=== PATIENT | male | born 1930 | race Caucasian/White ===

== ENCOUNTER → 2017-03-15 | Outpatient (CLI) | payer MEDICARE, BC ==
[2017-03-15 10:35] LABS: HEMATOCRIT 40.7 % (37.9-51.0); HEMOGLOBIN 13.7 g/dL (13.5-17.0); HGB HCT DIFFERENCE 0.4; MEAN CORPUSCULAR HEMOGLOBIN 32.9 pg (27.0-33.4); MEAN CORPUSCULAR HGB CONC 33.6 g/dL (32.0-36.0); MEAN CORPUSCULAR VOLUME 98 fl (80-97); RED BLOOD COUNT 4.17 10^6/uL (4.35-5.55); RED CELL DISTRIBUTION WIDTH 13.2 % (11.5-14.0); WHITE BLOOD COUNT 8.9 10^3/uL (4.0-10.5)
[2017-03-15 11:05] LABS: ANION GAP 14 (5-19); BLOOD UREA NITROGEN 52 mg/dL (7-20); CALCIUM 9.4 mg/dL (8.4-10.2); CARBON DIOXIDE 21 mmol/L (22-30); CHLORIDE 106 mmol/L (98-107); CREATININE RESULT 1.59 mg/dL (0.52-1.25); GLUCOSE 133 mg/dL (75-110); POTASSIUM 4.5 mmol/L (3.6-5.0); SODIUM 140.9 mmol/L (137-145)
[2017-03-15 12:06] LABS: APPEARANCE,URINE CLOUDY; BILIRUBIN,URINE NEGATIVE (NEGATIVE); GLUCOSE, URINE NEGATIVE (NEGATIVE); KETONES,URINE TRACE mg/dL (NEGATIVE); LEUKOCYTE ESTERASE,URINE NEGATIVE (NEGATIVE); NITRITE,URINE NEGATIVE (NEGATIVE); PROTEIN,URINE NEGATIVE (NEGATIVE); URIC ACID CRYSTALS,URINE FEW /HPF; URINE SPECIFIC GRAVITY 1.019; UROBILINOGEN,URINE NEGATIVE mg/dL (<2.0)
== END ==
LOC: OD 09:59
PROVIDERS: ATTEND Internal Medicine Nephrology
DX: I12.9 Hypertensive chronic kidney disease with stage 1 through stage 4 chronic kidney disease, or unspecified chronic kidney disease (principal); N18.3 Chronic kidney disease, stage 3 (moderate); E11.9 Type 2 diabetes mellitus without complications
CPT/HCPCS: 36415; 80048; 81001; 85027

== ENCOUNTER 2017-04-20 16:47 | Inpatient (IN) | payer MEDICARE, BC ==
[2017-04-20] MEDS ORDERED: NORMAL SALINE 1000 ML 1,000 ML IV ONE (17:06)
--- NOTE | 2017-04-20 17:22 | ER Document Report ---
ED General - General Mode of Arrival: Ambulatory Information source: Patient TRAVEL OUTSIDE OF THE [place] IN LAST 30 DAYS: No - HPI Similar symptoms previously: Yes Recently seen / treated by doctor: Yes <COSTA LARSEN - Last Filed: 04/20/17 23:36> <SELENA HENSLEY - Last Filed: 04/21/17 00:29> - General Chief Complaint: Nausea/Vomiting/Diarrhea Stated Complaint: VOMITING,WEAKNESS Time Seen by Provider: 04/20/17 17:05 Notes: Patient is an 86 year old male that presents to the emergency department today with complaints of diffuse abdominal pain, vomiting, and diarrhea. Family at bedside states the patient has declined quite a bit over the last month, including a 28 pound weight loss since February. Family states the patient had H. pylori in February, he was still having pain in March so he went back to the PCP and he admitted to them that he had not taken the medication as prescribed so they gave him another regimen of antibiotics which again he did not take as prescribed. Family states that testing came back "negative" for H. pylori recently. Family mentions a "blockage" during a colonoscopy but states they do not believe the patient ever followed up. (COSTA LARSEN) - Related Data Allergies/Adverse Reactions: No Known Allergies Allergy (Unverified 02/03/11 08:26) Past Medical History - General Information source: Patient, Relative, [facility] Records - Social History Smoking Status: Former Smoker Frequency of alcohol use: None Drug Abuse: None Lives with: Alone Family History: Reviewed & Not Pertinent - Past Medical History Cardiac Medical History: Reports: Hx Hypertension Musculoskeltal Medical History: Reports Hx Arthritis - Knees Past Surgical History: Reports: Other - Hx colonoscopy which revealed a "blockage" according to family at beside <COSTA LARSEN - Last Filed: 04/20/17 23:36> Review of Systems - Review of Systems Constitutional: No symptoms reported EENT: No symptoms reported Cardiovascular: See HPI, Syncope, Dizziness Respiratory: No symptoms reported Gastrointestinal: See HPI, Abdominal pain, Diarrhea, Nausea, Vomiting Genitourinary: No symptoms reported Male Genitourinary: No symptoms reported Musculoskeletal: No symptoms reported Skin: No symptoms reported Hematologic/Lymphatic: No symptoms reported Neurological/Psychological: No symptoms reported -: Yes All other systems reviewed and negative <COSTA LARSEN - Last Filed: 04/20/17 23:36> Physical Exam - Vital signs Interpretation: Hypotensive <COSTA LARSEN - Last Filed: 04/20/17 23:36> <SELENA HENSLEY - Last Filed: 04/21/17 00:29> - Vital signs Vitals: Temp Pulse Resp BP Pulse Ox 99.5 F 139 H 18 94/65 L 96 04/20/17 16:51 04/20/17 16:51 04/20/17 16:51 04/20/17 16:51 04/20/17 16:51 - Notes Notes: Physical Exam: General: Alert, appears in mild distress. HEENT: Normocephalic. Atraumatic. PERRL. Extraocular movements intact. Oropharynx clear. Dry mucous membranes. Neck: Supple. Non-tender. Respiratory: No respiratory distress. Clear and equal breath sounds bilaterally. Cardiovascular: Tachycardic, regular rhythm. Abdominal: Cachectic. Non-tender. No distension. Normal Bowel Sounds. Back: Non-tender. No deformity or step off. Extremities: Moves all four extremities. Upper extremities: Normal inspection. Normal ROM. Lower extremities: Normal inspection. No edema. Normal ROM. Neurological: Normal cognition. AAOx4. Normal speech. Psychological: Normal affect. Normal Mood. Skin: Warm. Dry. Normal color. (COSTA LARSEN) Course - Laboratory Result Diagrams: 04/20/17 17:46 04/20/17 21:43 <COSTA LARSEN - Last Filed: 04/20/17 23:36> - Laboratory Result Diagrams: 04/20/17 17:46 04/20/17 21:43 - Diagnostic Test Radiology reviewed: Image reviewed, Reports reviewed <SELENA HENSLEY - Last Filed: 04/21/17 00:29> - Re-evaluation Re-evalutation: 04/20/17 18:13 Went to recheck, pt in CT. 04/20/17 21:04 Dr. Brantley ([facility]) refuses transfer, wants repeat troponin (COSTA LARSEN) 04/21/17 00:27 Patient is an 86-year-old male who comes in with apparent nausea vomiting and diarrhea at home. Patient has not had any further vomiting here. He has not really had any further bowel movements. Patient was initially tachycardic and hypotensive. He is responding well to fluids. Patient has acute on chronic renal insufficiency. Patient also has an elevated troponin which is likely due to demand ischemia. Repeat troponin with no further elevation. Patient had been discussed with the hospitalist to [facility] who do not want to accept the patient for transfer if the patient is not having an increase in troponin. Think that this is due to demand ischemia and not a primary cardiac event. No acute changes on EKG. Patient would have procedures if needed per family. Discussed with family who would prefer to stay at this hospital. I do agree that this does not appear to be a primary cardiac event at this time. No increase in troponin. No acute findings on EKG. Improving with fluids. Stable at time of admission to the hospitalist service. (SELENA HENSLEY) - Vital Signs Vital signs: Temp Pulse Resp BP Pulse Ox 97.4 F 139 H 15 116/71 99 04/20/17 21:59 04/20/17 16:51 04/20/17 22:01 04/20/17 22:00 04/20/17 22:01 - Laboratory Laboratory results interpreted by me: 04/20/17 04/20/17 04/20/17 17:46 17:46 17:46 WBC 17.3 H Seg Neutrophils % 86.0 H Lymphocytes % 8.6 L Absolute Neutrophils 14.9 H VBG pH VBG pCO2 Sodium 146.5 H Chloride Carbon Dioxide 21 L BUN 84 H Creatinine 2.93 H Est GFR ( Amer) 25 L Est GFR (Non-Af Amer) 20 L Glucose 239 H Lactic Acid 2.3 H Direct Bilirubin 0.6 H Urine Protein Urine Ketones Urine Blood 04/20/17 04/20/17 04/20/17 17:46 18:06 21:43 WBC Seg Neutrophils % Lymphocytes % Absolute Neutrophils VBG pH 7.43 H VBG pCO2 33.3 L Sodium 148.4 H Chloride 112 H Carbon Dioxide BUN 80 H Creatinine 2.34 H Est GFR ( Amer) 32 L Est GFR (Non-Af Amer) 26 L Glucose 165 H Lactic Acid Direct Bilirubin Urine Protein 30 H Urine Ketones TRACE H Urine Blood MODERATE H Critical Care Note - Critical Care Note Total time excluding time spent on procedures (mins): 75 - Evaluation and management of tachycardia, hypotension, dehydration, acute renal insufficiency, coordination with tertiary care center, coordination of admission, multiple re- evaluations, counseling of patient and family <SELENA HENSLEY - Last Filed: 04/21/17 00:29> Discharge <COSTA LARSEN - Last Filed: 04/20/17 23:36> - Discharge Admitting Provider: [facility] Admitted: [facility] <SELENA HENSLEY - Last Filed: 04/21/17 00:29> - Discharge Clinical Impression: Acute on chronic renal insufficiency, Dehydration, Elevated troponin level Vomiting Qualifiers: Vomiting type: unspecified Vomiting Intractability: non-intractable Nausea presence: with nausea Qualified Code(s): R11.2 - Nausea with vomiting, unspecified Diarrhea Qualifiers: Diarrhea type: unspecified type Qualified Code(s): R19.7 - Diarrhea, unspecified Disposition: ADMITTED INPATIENT Scribe Attestation: 04/21/17 00:28 I personally performed the services described in the documentation, reviewed and edited the documentation which was dictated to the scribe in my presence, and it accurately records my words and actions. (SELENA HENSLEY) Scribe Documentation - Scribe Written by Jhon:: Jhon Blair, 04/20/2017 1758 acting as scribe for :: Zoey <COSTA LARSEN - Last Filed: 04/20/17 23:36>
[2017-04-20 18:00] LABS: VENOUS BLOOD BASE EXCESS -1.8 mmol/L; VENOUS BLOOD HCO3 21.6 mmol/L (20-32); VENOUS BLOOD PCO2 33.3 mmHg (35-63); VENOUS BLOOD PH 7.43 (7.30-7.42)
[2017-04-20 18:01] LABS: ABSOLUTE LYMPHOCYTES (AUTO) 1.5 10^3/uL (0.5-4.7); ABSOLUTE MONOCYTES (AUTO) 0.9 10^3/uL (0.1-1.4); ABSOLUTE NEUT (AUTO) 14.9 10^3/uL (1.7-8.2); BASOPHILS % (AUTO) 0.1 % (0-2); EOSINOPHILS % (AUTO) 0.1 % (0-6); HEMATOCRIT 49.7 % (37.9-51.0); HEMOGLOBIN 16.3 g/dL (13.5-17.0); HGB HCT DIFFERENCE -0.8; LYMPHOCYTES % (AUTO) 8.6 % (13-45); MEAN CORPUSCULAR HEMOGLOBIN 31.9 pg (27.0-33.4); MEAN CORPUSCULAR HGB CONC 32.9 g/dL (32.0-36.0); MEAN CORPUSCULAR VOLUME 97 fl (80-97); MONOCYTES % (AUTO) 5.2 % (3-13); RED BLOOD COUNT 5.13 10^6/uL (4.35-5.55); RED CELL DISTRIBUTION WIDTH 13.5 % (11.5-14.0); WHITE BLOOD COUNT 17.3 10^3/uL (4.0-10.5)
[2017-04-20 18:06] LABS: PROTHROMBIN TIME 13.6 SEC (11.4-15.4)
[2017-04-20 18:20] LABS: ALANINE AMINOTRANSFERASE 43 U/L (21-72); ALBUMIN 3.9 g/dL (3.5-5.0); ALKALINE PHOSPHATASE 76 U/L (38-126); ANION GAP 19 (5-19); ASPARTATE AMINO TRANSFERASE 29 U/L (17-59); BILIRUBIN,DIRECT 0.6 mg/dL (0.0-0.4); BILIRUBIN,TOTAL 1.2 mg/dL (0.2-1.3); BLOOD UREA NITROGEN 84 mg/dL (7-20); CALCIUM 9.6 mg/dL (8.4-10.2); CARBON DIOXIDE 21 mmol/L (22-30); CHLORIDE 107 mmol/L (98-107); CREATINE KINASE 76 U/L (55-170); CREATININE RESULT 2.93 mg/dL (0.52-1.25); GLUCOSE 239 mg/dL (75-110); POTASSIUM 4.4 mmol/L (3.6-5.0); SODIUM 146.5 mmol/L (137-145); TOTAL PROTEIN 6.8 g/dL (6.3-8.2)
[2017-04-20 18:32] LABS: CREATINE KINASE MB 4.12 ng/mL (<4.55)
[2017-04-20 18:34] LABS: TROPONIN I 0.24 ng/mL
--- NOTE | 2017-04-20 18:40 | RADIOLOGY REPORT (SQ) ---
EXAM DESCRIPTION: CT HEAD WITHOUT COMPLETED DATE/TIME: 04/20/2017 6:27 pm REASON FOR STUDY: fall, head injury COMPARISON: None. TECHNIQUE: Axial images acquired through the brain without intravenous contrast. Images reviewed wi th bone, brain and subdural windows. Images stored on PACS. All CT scanners at this facility use dose modulation, iterative reconstruction, and/or weight based d osing when appropriate to reduce radiation dose to as low as reasonably achievable (ALARA). [facility]: Dose Right [facility]: CareDose [facility]: Dose Right [facility]: Teradose 4D [facility]: Smart [employer] RADIATION DOSE: Up-to-date CT equipment and radiation dose reduction techniques were employed. CTDIv ol: 64.6 mGy. DLP: 1680 mGy-cm. mGy. LIMITATIONS: None. FINDINGS: VENTRICLES: Prominent. CEREBRUM: No masses. No hemorrhage. No midline shift. Areas of low density in the white matter mos t likely due to chronic micro-vascular ischemic change. No evidence for acute infarction. CEREBELLUM: No masses. No hemorrhage. No alteration of density. No evidence for acute infarction. EXTRAAXIAL SPACES: Mild age-related involutional change. No fluid collections. No masses. ORBITS AND GLOBE: No intra- or extraconal masses. Normal contour of globe without masses. CALVARIUM: No fracture. PARANASAL SINUSES: No fluid or mucosal thickening. SOFT TISSUES: No mass or hematoma. OTHER: No other significant finding. IMPRESSION: MILD CHRONIC CHANGES OF ATROPHY AND MICROVASCULAR ISCHEMIA. NO ACUTE PROCESS. TECHNICAL DOCUMENTATION: JOB ID: [id number] Quality ID # [id number]: Final reports with documentation of one or more dose reduction techniques (e.g., Au tomated exposure control, adjustment of the mA and/or kV according to patient size, use of iterative reconstruction technique) 2010 [employer]- All Rights Reserved
[2017-04-20 18:41] LABS: APPEARANCE,URINE SLIGHTLY-CLOUDY; BILIRUBIN,URINE NEGATIVE (NEGATIVE); GLUCOSE, URINE NEGATIVE (NEGATIVE); KETONES,URINE TRACE mg/dL (NEGATIVE); LEUKOCYTE ESTERASE,URINE NEGATIVE (NEGATIVE); NITRITE,URINE NEGATIVE (NEGATIVE); PROTEIN,URINE 30 mg/dL (NEGATIVE); URINE SPECIFIC GRAVITY 1.019; UROBILINOGEN,URINE NEGATIVE mg/dL (<2.0)
--- NOTE | 2017-04-20 18:44 | RADIOLOGY REPORT (SQ) ---
EXAM DESCRIPTION: CHEST PA/LAT COMPLETED DATE/TIME: 04/20/2017 6:37 pm REASON FOR STUDY: AMS COMPARISON: None. EXAM PARAMETERS: NUMBER OF VIEWS: two views TECHNIQUE: Digital Frontal and Lateral radiographic views of the chest acquired. RADIATION DOSE: NA LIMITATIONS: none FINDINGS: LUNGS AND PLEURA: The lungs are hyperexpanded. There are no pulmonary infiltrates or pleu ral effusions. There is no mass. MEDIASTINUM AND HILAR STRUCTURES: No masses or contour abnormalities. HEART AND VASCULAR STRUCTURES: Heart normal size. No evidence for failure. BONES: No acute findings. HARDWARE: None in the chest. OTHER: No other significant finding. IMPRESSION: Chronic lung changes with no acute cardiopulmonary disease. TECHNICAL DOCUMENTATION: JOB ID: [id number] [employer]- All Rights Reserved
--- NOTE | 2017-04-20 18:58 | RADIOLOGY REPORT (SQ) ---
EXAM DESCRIPTION: CT ABD/PELVIS NO ORAL OR IV COMPLETED DATE/TIME: 04/20/2017 6:27 pm REASON FOR STUDY: pain, N/V/D COMPARISON: CT of the abdomen 09/04/2009 TECHNIQUE: CT scan of the abdomen and pelvis performed without intravenous or oral contrast. Images reviewed with lung, soft tissue, and bone windows. Reconstructed coronal and sagittal MPR images revi ewed. All images stored on PACS. All CT scanners at this facility use dose modulation, iterative reconstruction, and/or weight based d osing when appropriate to reduce radiation dose to as low as reasonably achievable (ALARA). [facility]: Dose Right [facility]: CareDose [facility]: Dose Right [facility]: Teradose 4D [facility]: Smart [employer] RADIATION DOSE: Up-to-date CT equipment and radiation dose reduction techniques were employed. CTDIv ol: 4.8 mGy. DLP: 250 mGy-cm.mGy. LIMITATIONS: None. FINDINGS: LOWER CHEST: No significant findings. No nodules or infiltrates. NON-CONTRASTED LIVER, SPLEEN, ADRENALS: Evaluation limited by lack of IV contrast. No identified sign ificant masses. PANCREAS: No masses. No peripancreatic inflammatory changes. GALLBLADDER: Contracted. Not well evaluated. RIGHT KIDNEY AND URETER: Small nonobstructing intrarenal calculi. No hydronephrosis or hydroureter. LEFT KIDNEY AND URETER: No suspicious masses. Assessment limited by lack of IV contrast. No signifi cant calcifications. No hydronephrosis or hydroureter. AORTA AND RETROPERITONEUM: No aneurysm or dissection. Dense atherosclerotic calcifications are prese nt. BOWEL AND PERITONEAL CAVITY: There is a gas-filled loop of sigmoid colon, but there is no evidence of obstruction. There is some gas in the rectum. There are occasional sigmoid diverticula with no acu te inflammation. APPENDIX: Normal. PELVIS, BLADDER, AND ABDOMINAL WALL:Calcifications seen in the dependent portion of the bladder on th e right. The prostate gland is prominent. BONES: No acute abnormality. OTHER: No other significant finding. IMPRESSION: 1. Atherosclerosis. 2. There is no evidence of bowel obstruction. 3. Enlarged prostate gland. 4. Occasional sigmoid diverticula are present with no acute inflammatory changes. TECHNICAL DOCUMENTATION: JOB ID: [id number] Quality ID # [id number]: Final reports with documentation of one or more dose reduction techniques (e.g., Au tomated exposure control, adjustment of the mA and/or kV according to patient size, use of iterative reconstruction technique) 2010 [employer]- All Rights Reserved
[2017-04-20] MEDS ORDERED: RINGERS SOLUTION,LACTATED 500 ML IV ONE (19:09)
[2017-04-20] MEDS ORDERED: RINGERS SOLUTION,LACTATED 1,000 ML IV ONE (19:10)
--- NOTE | 2017-04-20 19:15 | EKG REPORT ---
SEVERITY:- ABNORMAL ECG - ECTOPIC ATRIAL TACHYCARDIA ATRIAL PREMATURE COMPLEX INCOMPLETE RBBB AND LAFB : Confirmed by: Mejia Fofana MD 20-Apr-2017 19:13:37
[2017-04-20 22:25] LABS: BLOOD UREA NITROGEN 80 mg/dL (7-20); CALCIUM 8.9 mg/dL (8.4-10.2); CREATININE RESULT 2.34 mg/dL (0.52-1.25); GLUCOSE 165 mg/dL (75-110)
[2017-04-20 22:26] LABS: ANION GAP 13 (5-19); CARBON DIOXIDE 23 mmol/L (22-30); CHLORIDE 112 mmol/L (98-107); POTASSIUM 4.3 mmol/L (3.6-5.0); SODIUM 148.4 mmol/L (137-145)
[2017-04-20] MEDS ORDERED: DEXTROSE 40% GEL 15 GM TUBE PO PRN ×2 (23:14)
[2017-04-20] MEDS ORDERED: GLUCAGON,HUMAN RECOMB 1 MG INJ IM PRN (23:14)
[2017-04-20] MEDS ORDERED: DEXTROSE 50%-WATER 25 GM/50 ML DISP.SYRIN IV PRN ×2 (23:14)
[2017-04-20] MEDS ORDERED: INSULIN LISPRO 100 UNIT/ML 3 ML VIAL SUBCUT PRN (23:14)
[2017-04-20] MEDS ORDERED: 1/2 NORMAL SALINE 1,000 ML IV PRN (23:15)
[2017-04-20 23:52] LABS: ADD ON TESTING BLD IN LAB ACKNOWLEDGE
[2017-04-21 00:18] LABS: MAGNESIUM 2.3 mg/dL (1.6-2.3)
[2017-04-21] MEDS ORDERED: ACETAMINOPHEN 325 MG TABLET PO ONE (01:07)
[2017-04-21] MEDS ORDERED: PROMETHAZINE HCL 25 MG TABLET PO PRN (02:49)
[2017-04-21] MEDS ORDERED: ACETAMINOPHEN 325 MG TABLET PO PRN (02:49)
--- NOTE | 2017-04-21 03:26 | PDOC H&P ---
History of Present Illness Admission Date/PCP: 04/21/17 00:35 [facility] urgent care [facility] Nephrology Dr. Heraclio Cortes Patient complains of: Vomiting and weakness History of Present Illness: JULISA TIAN is a 86 year old male with underlying mild depression , without suicidal or homicidal ideation, stage III chronic kidney disease, followed by Dr. 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 Patient has been discussed with emergency room physician who evaluated the patient. Patient himself is not the best historian, but son and [id number] , who are present at his side, are helpful with additional information. No prior inpatient records available for review. Initial mild hypotension in the emergency room, which responded nicely to IV fluids. As best I can determine, over the last 2 weeks or so he has had intermittent nausea vomiting and diarrhea. No fever or chills. Occasional headache, but no chest pain. Mild abdominal discomfort. No further vomiting or diarrhea since coming to the emergency room. Generalized weakness over the past month, with family stating that he has "declined quite a bit" over that time span. Normally ambulates with a cane; now requiring a walker. Unintentional 28 pound weight loss since February. Dizziness along with the generalized weakness. Has fallen twice in the past 2 weeks. Last episode was of last week. Diagnosed with H. pylori infection in February of this year. Prescribed medication for same but was later discovered that he had not taken the medication as prescribed. Was given a second regimen of antibiotics, but likewise did not take those as prescribed. However, subsequent test for H. pylori was reported as negative. Currently resting quietly, with only a mild headache, which is an occasional problem for him. Laboratory results are listed in [employer] and are reviewed. X-ray summary results are listed below, with full report(s) reviewed. . EKG reviewed. No prior EKG available for comparison. Social history/personal habits: ; of 69 years is currently in a rest home. Retired. No use of alcohol tobacco or illicit drugs. No known drug allergies. Home medications initially autopopulated into [employer] may not accurately reflect patient's true medications, dosages, and/or frequencies. tech intern to reconcile medications. Unfortunately, patient not able to provide information related to medications/ dosages/frequencies. REVIEW OF SYSTEMS: Constitutional: No fever or chills. Eyes: Wears glasses. ENT: Denies hearing loss. Admits to occasional dysphagia recently; denies food "getting stuck." Occasional mild aspiration also. States he sometimes has to swallow solid food with a drink of water. Pulmonary: No current complaints. Cardiovascular: No current complaints, including chest pain. Gastrointestinal: See history and present illness. Skin: No current complaints, including rashes. Hematologic: Easy bruising. Neurologic: No current complaints, including numbness or tingling. Musculoskeletal: Chronic joint pain from arthritis, in particular involving his knees. Psychiatric: Mild depression. Denies suicidal or homicidal ideation. Endocrine: No current complaints, including polyuria. Genitourinary: No current complaints, including dysuria. PHYSICAL EXAMINATION: 5 feet 9 inches tall. 50.4 kg. BMI 16.4 kg/m. Blood pressure 126/73. Pulse 92 and regular. 99% saturation on room air. Respirations are 16 and unlabored. Temperature 97.4. Quite thin otherwise well-developed male appearing approximately his stated age. Pleasant awake alert and cooperative. Mildly anxious, without agitation. Appears a bit fatigued. Son and [id number] are present at his side; patient approves. Skin is warm and dry. No grossly obvious evidence of rash in areas of skin examined. No subcutaneous nodules palpated. Dry peeling skin on his lips. ENT: Hearing grossly normal to normal conversation. Tongue midline on protrusion pink and tacky. Eyes: No scleral icterus. Pupils equal and reactive to light at 4 mm. [place] conjunctivae. Neck is supple and nontender to gentle active range of motion and palpation. Midline trachea. No palpable thyroid nodule mass enlargement or tenderness. Lymphatic: No palpable cervical or clavicular nodes. Psychiatric: Fair to reasonable insight into acute and chronic medical issues. Oriented to time location and why here. Lungs: Auscultation reveals clear and equal breath sounds bilaterally. No use of accessory respiratory muscles. Cardiovascular: Heart regular rate and rhythm, without gallop murmur or rub. No carotid or abdominal aortic bruits. No ankle or pedal edema. Faintly palpable dorsalis pedis pulses. Abdomen:soft nontender with positive bowel sounds. No upper abdominal mass or organomegaly palpated. Extremities: Feet are warm and dry. No calf tenderness to compression. No grossly obvious visual evidence of calf swelling. Gentle manipulation of lower extremities fails to reveal any obvious evidence of injury or instability to knees hips or ankles. Neurologic: Moves upper extremities grossly normally. Patellar reflexes absent. Absent Babinski. Light touch is intact at feet. Dorsiflexion and plantarflexion of feet 5 / 5 and symmetric. Past Medical History Cardiac Medical History: Reports: Hypertension Denies: Congestive Heart Failure, Coronary Artery Disease, DVT, Myocardial Infarction, Hyperlipidema, Pulmonary Embolism Pulmonary Medical History: Denies: Asthma, Bronchitis, Chronic Obstructive Pulmonary Disease (COPD), Pneumonia EENT Medical History: Reports: Eyes - Wears glasses, Throat - Mild recent dysphasia with occasional slight aspiration. Denies: Ears Neurological Medical History: Denies: Hemorrhagic CVA, Ischemic CVA, Seizures Endocrine Medical History: Reports: Diabetes Mellitus Type 2 Denies: Diabetes Mellitus Type 1, Hyperthyroidism, Hypothyroidism Renal/ Medical History: Reports: Chronic Kidney Disease Malignancy Medical History: Reports: Skin Cancer GI Medical History: Reports: Other - Recent partial treatment of H. pylori infection. History of "stomach upsets." Denies: Cirrhosis, Hepatitis, Peptic Ulcer Disease Musculoskeltal Medical History: Reports: Arthritis - Knees Skin Medical History: Reports: Other - Skin cancer Psychiatric Medical History: Reports: Depression - Denies suicidal or homicidal ideation. Denies: Alcohol Dependency, General Anxiety Disorder, Substance Abuse, Tobacco Dependency Hematology: Reports: Other - Easy bruising Denies: Anemia Infectious Medical History: Denies: Clostridium Difficile, Hepatitis B, Hepatitis C, Methicillin- Resistant Staph Aureus Past Surgical History Past Surgical History: Reports: Cholecystectomy, Herniorrhaphy, Other - Hx colonoscopy which revealed a "blockage" according to family at beside Denies: Pacemaker Social History Information Source: Patient, Relative - Son and [id number]-[id number], Emergency Med Personnel, [facility] Records Lives with: Alone Smoking Status: Unknown if Ever Smoked Frequency of Alcohol Use: None Drugs: None - Advance Directive Resuscitation Status: Do Not Resuscitate Surrogate healthcare decision maker:: Son Family History Family History: Reviewed & Not Pertinent Parental Family History Reviewed: Yes - Father of hypertension; mother of diabetes mellitus. Children Family History Reviewed: Yes - Son with coronary artery disease. Sibling(s) Family History Reviewed.: Yes - Surviving brother with "heart trouble " Medication/Allergy Home Medications: Glimepiride [Amaryl] 1 mg PO DAILY 04/21/17 Lisinopril [Zestril] 20 mg PO DAILY 04/21/17 Tamsulosin HCl [Flomax 0.4 mg Cap.sr] 0.4 mg PO DAILY 04/21/17 Aspirin [Aspirin 325 mg Tablet] 325 mg PO DAILY tablet 04/26/17 Metoprolol Tartrate [Lopressor 25 mg Tablet] 25 mg PO Q12 #0 tablet 04/26/17 Mirtazapine [Remeron 15 mg Tablet] 7.5 mg PO QHS tablet 04/26/17 Allergies/Adverse Reactions: No Known Allergies Allergy (Unverified 02/03/11 08:26) Physical Exam Vital Signs: Temp Pulse Resp BP Pulse Ox 97.4 F 139 H 14 122/74 99 04/20/17 21:59 04/20/17 16:51 04/21/17 02:01 04/21/17 02:00 04/21/17 02:01 Results Impressions: Abdomen/Pelvis CT 04/20/17 17:22 IMPRESSION: 1. Atherosclerosis. 2. There is no evidence of bowel obstruction. 3. Enlarged prostate gland. 4. Occasional sigmoid diverticula are present with no acute inflammatory changes. Head CT 04/20/17 17:22 IMPRESSION: MILD CHRONIC CHANGES OF ATROPHY AND MICROVASCULAR ISCHEMIA. NO ACUTE PROCESS. Chest X-Ray 04/20/17 17:23 IMPRESSION: Chronic lung changes with no acute cardiopulmonary disease. Assessment & Plan - Diagnosis (1) Acute worsening of stage 3 chronic kidney disease Is this a current diagnosis for this admission?: YesPlan: Likely prerenal, due to vomiting and diarrhea. Gradually improving with IV fluids so far. We will continue same. Repeat chemistry. (2) DNR (do not resuscitate) Is this a current diagnosis for this admission?: YesPlan: Implications of DO NOT RESUSCITATE/DO NOT INTUBATE status discussed with patient. Discussed in layperson's terms. Implications understood. Patient is the health care decision maker. Patient conversation is lucid and appropriate. Patient desires DO NOT RESUSCITATE/DO NOT INTUBATE status. Will honor patient wishes. Son and [id number] agree. (3) Dehydration Is this a current diagnosis for this admission?: Yes (4) Elevated troponin Is this a current diagnosis for this admission?: YesPlan: No outward clinical evidence of acute coronary syndrome. No chest pain. Will trend troponins. (5) Hypernatremia Is this a current diagnosis for this admission?: Yes (6) Leukocytosis Qualifiers: Leukocytosis type: unspecified Qualified Code(s): D72.829 - Elevated white blood cell count, unspecified Is this a current diagnosis for this admission?: YesPlan: No obvious source of infection. Cultures have been obtained. Repeat CBC with differential. (7) Nausea vomiting and diarrhea Is this a current diagnosis for this admission?: YesPlan: Clear liquid diet; advance as tolerated. IV fluids. Stool negative for C. difficile. I have strongly encouraged patient not to get out of bed without notifying staff , to avoid a fall with injury. Knee high SCDs for DVT prophylaxis, along with subcutaneous heparin. Impression and plans were discussed with patient, son, and [id number], all of whom concur. Time spent in evaluation and management of patient: 70 minutes. (8) Noncompliance Is this a current diagnosis for this admission?: Yes (9) Weight loss, non-intentional Is this a current diagnosis for this admission?: YesPlan: Outpatient workup. Dietary consult. (10) Dysphagia Qualifiers: Dysphagia type: unspecified Qualified Code(s): R13.10 - Dysphagia, unspecified Is this a current diagnosis for this admission?: YesPlan: Speech therapy consult. (11) General weakness Is this a current diagnosis for this admission?: YesPlan: Physical therapy consult.
[2017-04-21 04:37] LABS: ABSOLUTE BASOPHILS # (AUTO) 0.1 10^3/uL (0.0-0.2); ABSOLUTE EOSINOPHILS # (AUTO) 0.1 10^3/uL (0.0-0.6); ABSOLUTE LYMPHOCYTES (AUTO) 2.1 10^3/uL (0.5-4.7); ABSOLUTE MONOCYTES (AUTO) 0.9 10^3/uL (0.1-1.4); ABSOLUTE NEUT (AUTO) 11.1 10^3/uL (1.7-8.2); BASOPHILS % (AUTO) 0.4 % (0-2); EOSINOPHILS % (AUTO) 0.5 % (0-6); HEMATOCRIT 42.9 % (37.9-51.0); HGB HCT DIFFERENCE -1.2; MEAN CORPUSCULAR HEMOGLOBIN 31.6 pg (27.0-33.4); MEAN CORPUSCULAR HGB CONC 32.5 g/dL (32.0-36.0); MEAN CORPUSCULAR VOLUME 97 fl (80-97); MONOCYTES % (AUTO) 6.2 % (3-13); RED BLOOD COUNT 4.42 10^6/uL (4.35-5.55); RED CELL DISTRIBUTION WIDTH 13.6 % (11.5-14.0); SEGMENTED NEUTROPHILS % (AUTO) 77.9 % (42-78); WHITE BLOOD COUNT 14.2 10^3/uL (4.0-10.5)
[2017-04-21 04:48] LABS: ANION GAP 9 (5-19); BLOOD UREA NITROGEN 78 mg/dL (7-20); CALCIUM 8.6 mg/dL (8.4-10.2); CARBON DIOXIDE 26 mmol/L (22-30); CHLORIDE 113 mmol/L (98-107); CREATININE RESULT 2.39 mg/dL (0.52-1.25); GLUCOSE 141 mg/dL (75-110); POTASSIUM 4.3 mmol/L (3.6-5.0); SODIUM 147.6 mmol/L (137-145)
[2017-04-21 04:56] LABS: HEMOGLOBIN 13.9 g/dL (13.5-17.0)
[2017-04-21] MEDS: INSULIN LISPRO 100 UNIT/ML 3 ML VIAL SUBCUT SCH ×4 (09:47→22:11)
[2017-04-21] MEDS ORDERED: 1/2 NORMAL SALINE 1,000 ML IV PRN (09:53)
[2017-04-21] MEDS: HEPARIN SOD (PORCINE) 5,000 UNIT/ML 1 ML SYRINGE SUBCUT SCH ×2 (09:58→22:10)
--- NOTE | 2017-04-21 10:39 | PROGRESS NOTE E ---
Progress Note NAME: JULISA TIAN : 1930 AGE: 86Y DATE: 04/21/2017 ROOM: [facility] SUBJECTIVE: The patient is currently lying in bed. The patient's family is present at the bedside and active in the patient's care. The patient gave a pretty good history. According to the patient, over the last month to month and a half, he has had very minimal appetite. The patient also describes sensations that his food may be coming back up when he is eating it, intermittent diarrhea, but overall not much of an appetite. The family does confirm that the patient's has been placed in a SNF facility and the patient has had some depression associated with this for which the patient does acknowledge; however, he does deny suicidal/homicidal ideation. The patient's creatinine did improve overnight. After much discussion, the patient would like relatively conservative management, however, has agreed to evaluation for his swallowing issues as well as hydration and improvement in his kidney function. The family and the patient do not voice any other concerns at this time. REVIEW OF SYSTEMS: Rest of review of systems negative. MEDICATIONS: Medications have been reviewed. OBJECTIVE: GENERAL: The patient is an 86-year-old male who is awake, alert. He is oriented to person, place, time. He is hard of hearing, not fully oriented to situation. He does not appear to be in any acute distress. VITAL SIGNS: Temperature is 98.2, pulse 94, respirations 18, blood pressure is 138/68, oxygen saturation 100% on room air. SKIN: Warm, dry. No rash. Not diaphoretic. HEENT: Pupils equal, round, reactive to light and accommodation. Conjunctiva is pale. Patient does have mild dermatitis on his chin. CARDIOVASCULAR SYSTEM: Heart is regular. He has no murmur or rub. CHEST: Clear, symmetrical, unlabored. ABDOMEN: Soft, nontender, nondistended. BACK: No CVA tenderness or sacral edema. EXTREMITIES: No clubbing, cyanosis, edema. PSYCHIATRIC: Appropriate affect. Pleasant mood. DIAGNOSTICS: Lab values are as follows: Hematology obtained on 04/21/2017: WBCs are 14.3, hemoglobin is 13.9, hematocrit is 42.9, platelet count is 136,000. Chemistry obtained on 04/20/2017: Sodium is 148, potassium 4.3, chloride is 112, carbon dioxide is 23, BUN 80, creatinine is 2.38, glucose 165, calcium is 8.9, magnesium is 2.3. Blood cultures obtained on 04/20/2017 are pending. IMPRESSION AND PLAN: 1. NAUSEA, VOMITING, DIARRHEA, AND ANOREXIA. The patient's stool studies thus far have been negative. After much discussion with the family, feel that this may be a component of failure to thrive since this does correlate with the patient's 's placement in a facility. However, will consult Speech Therapy to ensure there is not a swallow issue here and encourage p.o. intake. The patient and family are agreeable to appetite stimulant and will follow. 2. ACUTE ON CHRONIC KIDNEY DISEASE. It appears that the patient's baseline creatinine is in the 1.5 range and the patient has an underlying CKD stage 4. Will continue to gently hydrate and repeat chemistries in the a.m. 3. DVT PROPHYLAXIS. The patient is receiving subcu heparin. DISPOSITION: The patient is a DO NOT RESUSCITATE/DO NOT INTUBATE. Pending patient's symptomatology and diagnostic findings, will re-evaluate in the a.m. Time spent on this extended visit, including assessment, plan, physical examination, patient education, family meeting direct at the bedside is 35 minutes. DICTATING PHYSICIAN: TRINIDAD DIAZ NP [id number] PHY#: [id number] ID: [id number] JOB#: [id number] ACCT: [id number] cc: >
[2017-04-21] MEDS: MEGESTROL ACETATE SUSP 400 MG/10 ML UDCUP PO SCH (12:33)
--- NOTE | 2017-04-21 16:38 | RADIOLOGY REPORT (SQ) ---
EXAM DESCRIPTION: BARIUM SWALLOW ESOPHAGUS COMPLETED DATE/TIME: 04/21/2017 2:40 pm REASON FOR STUDY: Regurgitation, dysphagia COMPARISON: None. TECHNIQUE: Under fluoroscopic guidance, patient ingested thin liquid barium. Fluoroscopic spot image s and routine radiographic images acquired and stored on PACS. 12 MM BARIUM TABLET GIVEN: Yes. No significant delay in passage. LIMITATIONS: None. FLUOROSCOPY TIME: 34 seconds 15 series of digital images saved to PACS. FINDINGS: NEUROMUSCULAR COORDINATION OF SWALLOW: Trace subglottic aspiration ESOPHAGEAL MOTILITY: Tertiary contractions of the esophagus. No esophageal spasm. ESOPHAGEAL MUCOSA: Normal mucosa without masses or ulceration. GASTRO-ESOPHAGEAL JUNCTION: Tiny hiatal hernia. Mild gastroesophageal reflux NON-GI TRACT STRUCTURES: No significant finding. OTHER: Limited view of the stomach demonstrates no delay in gastric emptying. IMPRESSION: NORMAL SINGLE CONTRAST SWALLOW. COMMENT: Quality ID [id number]: Final reports for procedures using fluoroscopy that document radiation exp osure indices, or exposure time and number of fluorographic images (if radiation exposure indices are not available) TECHNICAL DOCUMENTATION: JOB ID: [id number] [employer]- All Rights Reserved
[2017-04-22 04:34] LABS: ANION GAP 7 (5-19); BLOOD UREA NITROGEN 63 mg/dL (7-20); CALCIUM 7.9 mg/dL (8.4-10.2); CARBON DIOXIDE 23 mmol/L (22-30); CHLORIDE 111 mmol/L (98-107); CREATININE RESULT 1.61 mg/dL (0.52-1.25); GLUCOSE 109 mg/dL (75-110); MAGNESIUM 1.9 mg/dL (1.6-2.3); POTASSIUM 3.6 mmol/L (3.6-5.0); SODIUM 141.3 mmol/L (137-145)
[2017-04-22] MEDS: INSULIN LISPRO 100 UNIT/ML 3 ML VIAL SUBCUT SCH ×4 (08:09→21:29)
[2017-04-22] MEDS ORDERED: ACETAMINOPHEN 325 MG TABLET PO PRN (09:19)
--- NOTE | 2017-04-22 09:57 | PROGRESS NOTE E ---
Progress Note NAME: JULISA TIAN : 1930 AGE: 86Y DATE: 04/22/2017 ROOM: 302 SUBJECTIVE: The patient is out of bed to the bedside chair. The patient apparently did a little better with his breakfast yesterday. The patient did have a barium swallow which was unremarkable. The patient was also seen by speech therapy and dietary recommendations were changed, however, it appears that the patient does not have an issue with actual ingesting the food, more of his appetite is most likely related to possible depression versus [id number]. The patient has been afebrile. Blood pressure has been in a good range. The patient denies any nausea, vomiting, diarrhea. No shortness of breath, dizziness, chest pain. No fevers, chills. The patient does not voice any other concerns at this time. REVIEW OF SYSTEMS: Rest of review of systems negative. MEDICATIONS: Medications have been reviewed. OBJECTIVE: GENERAL: The patient is an 86-year-old male who is awake, alert, and oriented to person, place, time, and situation, just a little delayed. Does not appear to be in any acute distress. VITAL SIGNS ARE FOLLOWS: Temperature is 97.7 pulse 81, respirations 16, blood pressure is 129/68, oxygen saturation is 100% on room air. SKIN: Warm and dry. No rash. Not diaphoretic. HEENT: Pupils equal, round, reactive to light and accommodation. Conjunctivae are pink. CARDIOVASCULAR: Heart is regular. He has no murmur or rub. CHEST: Clear, symmetrical, unlabored. ABDOMEN: Soft, nontender, nondistended. BACK: No CVA tenderness or sacral edema. EXTREMITIES: No clubbing, cyanosis, edema. PSYCHIATRIC: Appropriate affect. Pleasant mood. DIAGNOSTICS: Lab values are as follows: Hematology obtained on 04/21/2017: WBCs are 14.2, hemoglobin is 13.9, hematocrit is 42.9, platelet count is 136,000. Chemistry obtained on 04/22/2017: Sodium is 141, potassium 3.6, chloride is 111, carbon dioxide is 23, BUN 63, creatinine is 1.61, glucose 109, calcium is 7.9, magnesium is 1.9. IMPRESSION AND PLAN: 1. NAUSEA, VOMITING, DIARRHEA, AND ANOREXIA. Stool studies have been negative thus far. Diarrhea is improved. Will continue probiotic therapy. Given the patient has had no issue with barium study, as well as with speech therapy evaluation, I feel there may be a component of [id number], most likely due from depression, given his being placed in a facility. Will start the patient on low dose Remeron at night to see if it helps with this. The patient was agreeable to appetite stimulant so we will continue this. Will consult Palliative Care, given the patient's overall sharp decline in functional status. 2. ACUTE ON STAGE III CHRONIC KIDNEY DISEASE. The patient's creatinine is now back to baseline. Will discontinue intravenous fluids and follow. 3. DIABETES MELLITUS, TYPE 2. Blood glucoses have been fairly reasonable. Now that the patient is eating more, resume Amaryl. 4. HYPERTENSION. The patient's blood pressures have been in a good range. Will resume lisinopril in the a.m. 5. DEEP VENOUS THROMBOSIS PROPHYLAXIS. Will continue subcutaneous heparin. DISPOSITION: The patient is a DO NOT RESUSCITATE/DO NOT INTUBATE. Pending patient's symptomatology and diagnostic findings, will re-evaluate in the a.m. for discharge. Time spent on this followup including assessment, plan, physical examination, and patient education is 25 minutes. DICTATING PHYSICIAN: TRINIDAD DIAZ NP [id number] PHY#: [id number] ID: [id number] JOB#: [id number] ACCT: [id number] cc: >
[2017-04-22] MEDS ORDERED: GLIMEPIRIDE 1 MG TABLET PO SCH (10:00)
[2017-04-22] MEDS: LISINOPRIL 10 MG TABLET PO SCH (10:31)
[2017-04-22] MEDS: HEPARIN SOD (PORCINE) 5,000 UNIT/ML 1 ML SYRINGE SUBCUT SCH ×2 (10:31→21:44)
[2017-04-22] MEDS: LACTOBACILLUS ACIDOPHILUS 250 MG TAB PO SCH ×2 (10:33→18:02)
[2017-04-22] MEDS: MEGESTROL ACETATE SUSP 400 MG/10 ML UDCUP PO SCH (12:29)
[2017-04-22] MEDS: TAMSULOSIN HCL 0.4 MG CAP.SR.24H PO SCH (18:02)
[2017-04-22] MEDS: MIRTAZAPINE 15 MG TABLET PO SCH (21:33)
[2017-04-22 21:43] LABS: ANION GAP 8 (5-19); BLOOD UREA NITROGEN 61 mg/dL (7-20); CARBON DIOXIDE 25 mmol/L (22-30); CHLORIDE 102 mmol/L (98-107); CREATININE RESULT 1.82 mg/dL (0.52-1.25); GLUCOSE 131 mg/dL (75-110); MAGNESIUM 1.8 mg/dL (1.6-2.3); POTASSIUM 3.8 mmol/L (3.6-5.0); SODIUM 134.7 mmol/L (137-145)
--- NOTE | 2017-04-22 23:55 | Palliative Consultation Report ---
Consultation From:: LIO MIGUEL Consult Reason: Palliaitve Care - HPI HPI: Palliative care visit made with patient from 1:10-1:40 pm on 04/22/17 Appreciate referral of this 86 year old patient for palliative care. Mr. Schwartz has been admitted with failure to thrive symptoms. He has lost 28 pounds in two months. He is alert and oriented and says he lives alone but his son comes often to check on him. He tells me his has been a patient at [facility] for about a year and while he misses her and worries about her, he doesnt think that is why he has stopped eating. He says his appetite just " went away" and he couldn't force himself to eat. He has had some diarrhea problems but denies nausea or vomiting. He denies pain except in his knees from arthritis. Mr. Schwartz also has Diabetes, Stage III CKD, and recent historyof positive h- Pylori which is now negative. He says he sleeps pretty well and is able to ambulate around his home. During our visit I assisted patient with setting up his lunch and he was eating well when I left. He says the food tastes so good in the hospital. He shows no problem with chewing or swallowing. No cough noted during the meal. He says they put him on medicine to hlep his appetite and it must be helping. Onset: Other - 2 month duration decreased appetite and weight loss Onset/Duration: Gradual Quality of Pain: No pain Past Medical History(Consults) - General Information Source: Patient, [facility] Records Home Medications: Glimepiride [Amaryl] 1 mg PO DAILY 04/21/17 Lisinopril [Zestril] 20 mg PO DAILY 04/21/17 Tamsulosin HCl [Flomax 0.4 mg Cap.sr] 0.4 mg PO DAILY 04/21/17 Allergies/Adverse Reactions: No Known Allergies Allergy (Unverified 02/03/11 08:26) - Social History Lives with: Alone Family History: Reviewed & Not Pertinent Parental Family History Reviewed: No Children Family History Reviewed: No Sibling(s) Family History Reviewed.: No Smoking Status: Never Smoker Frequency of Alcohol Use: None Hx Recreational Drug Use: No Drugs: None Hx Prescription Drug Abuse: No - Past Medical History Cardiac Medical History: Reports: Hx Hypertension Denies: Hx Congestive Heart Failure, Hx Coronary Artery Disease, Hx DVT, Hx Heart Attack, Hx Hypercholesterolemia, Hx Pulmonary Embolism Pulmonary Medical History: Denies: Hx Asthma, Hx Bronchitis, Hx COPD, Hx Pneumonia EENT Medical History: Reports: Eyes - Wears glasses, Throat - Mild recent dysphasia with occasional slight aspiration. Denies: Ears Neurological Medical History: Denies: Hx Cerebrovascular Accident, Hx Seizures Endocrine Medical History: Reports: Hx Diabetes Mellitus Type 2. Denies: Hx Diabetes Mellitus Type 1, Hx Hyperthyroidism, Hx Hypothyroidism Renal/ Medical History: Reports: Hx Renal Insufficiency. Denies: Hx Peritoneal Dialysis Malignancy Medical History: Reports Hx Skin Cancer GI Medical History: Reports: Other - Recent partial treatment of H. pylori infection. History of "stomach upsets.". Denies: Hx Cirrhosis, Hx Hepatitis Musculoskeltal Medical History: Reports Hx Arthritis - Knees Skin Medical History: Reports Other - Skin cancer Psychiatric Medical History: Reports: Hx Depression Infectious Medical History: Denies: Hx C-Diff, Hx Hepatitis, Hx MRSA Hematology: Reports: Other - Easy bruising Denies: Anemia - Surgical History Past Surgical History: Reports: Hx Cholecystectomy, Hx Herniorrhaphy, Other - Hx colonoscopy which revealed a "blockage" according to family at beside. Denies: Hx Pacemaker Review of systems Constitutional: Malaise, Weight loss EENT: No symptoms reported Cardiovascular: No symptoms reported Respiratory: No symptoms reported Gastrointestinal: Diarrhea, Poor appetite Geniturinary: No symptoms reported Male Genitourinary: No symptoms reported Musculoskeltal: Joint pain Skin: Other - Bruising Hematologic/Lymphatic: Easy bruising Neurological/Psychological: Depression, Weakness Ojective:Exam Vital Signs: Temp Pulse Resp BP Pulse Ox 97.9 F 97 20 121/65 100 04/22/17 20:14 04/22/17 20:14 04/22/17 20:14 04/22/17 20:14 04/22/17 20:14 Intake & Output 04/21/17 04/22/17 04/23/17 06:59 06:59 06:59 Intake Total 700 1495 Output Total 500 Balance 200 1495 Weight 56 kg - General General Appearance: Alert In distress: None Note:: Cheerful speech clear and pleasant. No distress. Up in chair, but I did not see patient ambulate - HEENT Head: Normocephalic Conjunctiva: Normal - Respiratory Respiratory Status: No respiratory distress Chest Status: Nontender Breath sounds: Clear - Cardiovascular Rhythm: Regular Pulses: Normal: Radial - Abdominal Inspection: Normal - Very thin - Neurological Cognition: Normal Orientation: AAOx4, Alert Speech: Normal Cranial nerves: Normal - Psychological Associated symptoms: Normal mood, Decreased appetite - Decreased appetite at home, eating well today during visit Objective-Diagnostic Laboratory: 04/22/17 21:19 04/22/17 04/22/17 04/22/17 03:52 03:52 21:19 Sodium 141.3 134.7 L Potassium 3.6 3.8 Chloride 111 H 102 Carbon Dioxide 23 25 Anion Gap 7 8 BUN 63 H 61 H Creatinine 1.61 H 1.82 H Est GFR ( Amer) 49 L 43 L Est GFR (Non-Af Amer) 41 L 35 L Glucose 109 131 H Calcium 7.9 L 8.0 L Magnesium 1.9 1.8 Albumin 2.2 L 04/22/17 21:19 Troponin I 0.135 Plan and Recommendation Plan and Recommendation: Long discussion with patient about his life at home. He states his misses his but doesn't think that is why he has lost weight. He is concerned that "something is wrong" but is also happy that the "medication is making me hungry " I agree that Remeron is a very good choice for this patient. however, I also have concerns that patient is not able to prepare his food at home. He denies pain or changes in digestion except for some recent diarrhea. I told patient that with the weight loss he has experienced and the low albumin levels he has on his labs, he may be eligible for hospice services when he goes home until he recovers. I left my cell phone number and a note for his son to call me. Will try to talk to son to get some insight on the weightloss and see if he is aware of anything that may have changed in the patients ability to eat, prepare foods, or any signs of depression or illness. Will follow, appreciate speech therapy eval. and addition of mirtazipne. - Time Spent with Patient Time spent with patient: 15 to 30 Minutes - 30 min with patient
--- NOTE | 2017-04-23 00:35 | RADIOLOGY REPORT (SQ) ---
EXAM DESCRIPTION: NM LUNG VENT/PERF SCAN COMPLETED DATE/TIME: 04/23/2017 12:10 am REASON FOR STUDY: elev d dimer COMPARISON: Chest x-ray 04/20/2017. RADIONUCLIDE AND DOSE: 5.43 millicuries TC-99m MAA Intravenous 28.2 millicuries TC-99m DTPA Inhaled aerosol TECHNIQUE: 6 views of the lungs acquired post ventilation of DTPA aerosol. 6 matching views of the lungs acquired following injection of MAA. LIMITATIONS: None. FINDINGS: VENTILATION: There is central airway deposition of DTPA aerosol during ventilatory phase. PERFUSION: There is a perfusion defect in the left upper lobe. Otherwise, there is homogeneous distr ibution of the radiopharmaceutical. IMPRESSION: Intermediate probability for pulmonary embolism. Evaluation with CT angiogram may be wo rthwhile. TECHNICAL DOCUMENTATION: JOB ID: [id number] [id number] 2010 [employer]- All Rights Reserved
[2017-04-23] MEDS ORDERED: NORMAL SALINE 1000 ML 1,000 ML IV PRN (02:19)
[2017-04-23] MEDS ORDERED: NORMAL SALINE 1000 ML 500 ML IV ONE (02:30)
--- NOTE | 2017-04-23 06:02 | RADIOLOGY REPORT (SQ) ---
EXAM DESCRIPTION: CTA CHEST COMPLETED DATE/TIME: 04/23/2017 5:48 am REASON FOR STUDY: abn v/q scan , shortness of breath, chest pain. COMPARISON: Chest x-ray 04/20/2017, CT abdomen and pelvis 04/20/2017. V/Q scan 04/22/2017. TECHNIQUE: CT scan of the chest performed using helical scanning technique with dynamic intravenous contrast injection. Images reviewed with lung, soft tissue and bone windows. Reconstructed coronal and sagittal MPR images reviewed. Additional 3 dimensional post-processing performed to develop Maximal Intensity Projection images (HI P). All images stored on PACS. All CT scanners at this facility use dose modulation, iterative reconstruction, and/or weight based d osing when appropriate to reduce radiation dose to as low as reasonably achievable (ALARA). [facility]: Dose Right [facility]: CareDose [facility]: Dose Right [facility]: Teradose 4D [facility]: [place].de CONTRAST TYPE AND DOSE: contrast/concentration: Isovue 300.00 mg/ml; Total Contrast Delivered: 100.0 ml; Total Saline Delivered: 55.0 ml RENAL FUNCTION: Creatinine 1.82 RADIATION DOSE: Up-to-date CT equipment and radiation dose reduction techniques were employed. CTDIv ol: 14.3 mGy. DLP: 495 mGy-cm. . LIMITATIONS: None. FINDINGS: LUNGS AND PLEURA: No consolidation, pleural effusion or pneumothorax. AORTA AND GREAT VESSELS: Atherosclerotic calcifications within the thoracic aorta. There is no thora cic aortic aneurysm or CT evidence for acute dissection. HEART: Coronary arteries calcifications are noted No pericardial effusion. PULMONARY ARTERIES: No emboli visualized in the main pulmonary arteries or the segmental branches. HILAR AND MEDIASTINAL STRUCTURES: No identified masses or abnormal nodes. HARDWARE: None in the chest. UPPER ABDOMEN: No significant findings. Limited exam. THYROID AND OTHER SOFT TISSUES: No masses. No adenopathy. BONES: Degenerative changes in the spine. 3D MIPS: Confirm above findings. IMPRESSION: No CT evidence for pulmonary emboli. TECHNICAL DOCUMENTATION: JOB ID: [id number] Quality ID # [id number]: Final reports with documentation of one or more dose reduction techniques (e.g., Au tomated exposure control, adjustment of the mA and/or kV according to patient size, use of iterative reconstruction technique) 2010 [employer]- All Rights Reserved
[2017-04-23] MEDS: GLIMEPIRIDE 1 MG TABLET PO SCH (08:14)
[2017-04-23] MEDS: INSULIN LISPRO 100 UNIT/ML 3 ML VIAL SUBCUT SCH ×4 (08:15→22:14)
--- NOTE | 2017-04-23 08:18 | EKG REPORT ---
SEVERITY:- ABNORMAL ECG - ATRIAL FIBRILLATION, V-RATE 110-181 RIGHT BUNDLE BRANCH BLOCK LOW VOLTAGE IN FRONTAL LEADS : Confirmed by: Mejia Fofana MD 23-Apr-2017 08:17:04
[2017-04-23] MEDS ORDERED: (PENDING PHARMACY ID) (Lisinopril [Zestril] 20 MG) PO SCH (10:00)
[2017-04-23] MEDS: LISINOPRIL 10 MG TABLET PO SCH (10:21)
[2017-04-23] MEDS: LACTOBACILLUS ACIDOPHILUS 250 MG TAB PO SCH ×2 (10:24→17:32)
[2017-04-23] MEDS: HEPARIN SOD (PORCINE) 5,000 UNIT/ML 1 ML SYRINGE SUBCUT SCH ×2 (10:25→22:14)
[2017-04-23] MEDS: MEGESTROL ACETATE SUSP 400 MG/10 ML UDCUP PO SCH (12:16)
[2017-04-23] MEDS ORDERED: METOPROLOL TARTRATE 25 MG TABLET PO ONE (14:30)
--- NOTE | 2017-04-23 15:03 | PROGRESS NOTE E ---
Progress Note NAME: JULISA TIAN : 1930 AGE: 86Y DATE: 04/23/2017 ROOM: 302 SUBJECTIVE: The patient was seen earlier today on rounds. The patient was completing his breakfast when I visited. The patient had engulfed his entire tray and was asking for more food. He has had an excellent response to appetite stimulant. The patient and family did meet with palliative care and after much discussion, the patient has now agreed to go to rehab facility. He wants to go to the same facility as his . Overnight the patient did have an episode of atrial fibrillation in which he had spontaneous resolution. I discussed this with the patient and the patient states that many times at home he feels "his heart racing." The patient states sometimes, "His heart is going to beat out of his chest." The patient denies any pain associated with this. I discussed with the family the likelihood of paroxysmal a-fib and the family is in agreeance to conservative management given the patient's advanced age, and the family do not voice any other concerns at this time. REVIEW OF SYSTEMS: Rest of review of systems negative. MEDICATIONS: Medications have been reviewed. OBJECTIVE: GENERAL: The patient is an 86-year-old male who is awake, and alert. He is oriented to person, place, time, and situation, quite hard of hearing. He does not appear to be in any acute distress. VITAL SIGNS ARE FOLLOWS: Temperature is 97.6, pulse 76, respirations 16, blood pressure is 159/41, oxygen saturation is 100% on room air. SKIN: Warm and dry. No rash. Not diaphoretic. HEENT: Pupils equal, round, reactive to light and accommodation. Conjunctivae are pink. No JVP. CARDIOVASCULAR: Heart is regular. He has no murmur or rub. CHEST: Clear, symmetrical, unlabored. ABDOMEN: Soft, nontender, nondistended. BACK: No CVA tenderness or sacral edema. EXTREMITIES: No clubbing, cyanosis, edema. PSYCHIATRIC: Appropriate affect. Pleasant mood. DIAGNOSTICS: Lab values are as follows: Hematology obtained on 04/21/2017: WBCs are 14.2, hemoglobin is 13.9, hematocrit is 42.9, platelet count is 136,000. Chemistry obtained on 04/22/2017: Sodium is 135, potassium 3.8, chloride is 102, carbon dioxide 25, BUN 61, creatinine is 1.82, glucose 131, calcium 8.0, magnesium is 1.8. IMPRESSION AND PLAN: 1. NAUSEA, VOMITING, DIARRHEA, AND ANOREXIA. It appears that all symptoms have resolved. The patient did have speech therapy evaluation as well as swallow evaluation and upper GI series, which was found to be unremarkable. Most likely this was a component of failure to thrive from depression given his being placed in a facility. We will continue Remeron at night, and the patient and family were agreeable to the risk associated with appetite stimulant. The patient has had excellent results with this thus far. Do appreciate Palliative input with this. 2. ACUTE ON CHRONIC STAGE III KIDNEY DISEASE. The patient's creatinine is now back to baseline. Will discontinue IV fluids. 3. DIABETES MELLITUS, TYPE 2. Blood sugars have been fairly reasonable. Now the patient is eating more, have resumed Amaryl but will monitor it and see if the patient may need some basal dosage. 4. HYPERTENSION. Blood pressures have been in a good range. Will continue current medication. 5. PAROXYSMAL ATRIAL FIBRILLATION. The patient did spontaneously convert back to sinus rhythm. The patient and family have elected for conservative management. We will start the patient on a beta-nba and aspirin. Given the patient's falls and advanced age, declined the risk associated with chronic anticoagulation. 6. DVT PROPHYLAXIS. Will continue subcutaneous heparin. DISPOSITION: The patient is a DO NOT RESUSCITATE/DO NOT INTUBATE. Pending patient's symptomatology and diagnostic findings, will reevaluate in the a.m. The patient has elected to go to rehab. Time spent on this followup including assessment, plan, physical examination, patient education, and family meeting is 25 minutes. DICTATING PHYSICIAN: TRINIDAD DIAZ NP [id number] PHY#: [id number] ID: [id number] JOB#: [id number] ACCT: [id number] cc: >
[2017-04-23] MEDS: TAMSULOSIN HCL 0.4 MG CAP.SR.24H PO SCH (17:32)
--- NOTE | 2017-04-23 20:11 | Progress Note ---
Provider Note Provider Note: April 23, 2017: Approximately 8:30 PM on the , I was contacted by patient's floor nurse, noting that patient had developed atrial fibrillation with rapid ventricular response. Telephone conversation with patient, with my being involved in the care of another patient at that time, along with chart review, revealed this was new onset atrial fibrillation. Subsequent d-dimer elevated. Subsequent ventilation perfusion lung scan revealed intermediate probability of pulmonary embolus. I discussed the overall situation with Dr. Pérez, consulting services associate radiologist. She felt that patient's creatinine was adequate for patient to undergo CT angiogram of chest, with IV fluid hydration, which was underway. At 2:10 AM this morning, I discussed the overall situation by phone with his son , Usman, who is patient's surrogate healthcare decision maker. Patient is , but his elderly is in [facility] with underlying Alzheimer's. Patient himself is quite confused at the bedside and is not able to understand the implications of planned investigation. Son understands that patient may have thrown a blood clot to his lungs as a cause of his irregular heartbeat. He understands this could be a fatal situation if not treated with systemic anticoagulation, which has the risks of internal bleeding, including GI tract hemorrhage and/or intracranial hemorrhage , the latter of which can result in or stroke with permanent paralysis. He also understands the risks of CT with intravenous contrast to include worsening of patient's kidney function. I did explain that we were hydrating his father. I told him we would only consider proceeding with the CT with intravenous contrast if he were willing that his father undergo systemic anticoagulation should a blood clot be found. He stated he would. Above discussed in layperson's terms. Therefore, will proceed with CT angiogram of chest.
[2017-04-23] MEDS: METOPROLOL TARTRATE 25 MG TABLET PO SCH (22:12)
[2017-04-23] MEDS: MIRTAZAPINE 15 MG TABLET PO SCH (22:13)
--- NOTE | 2017-04-23 22:34 | Progress Note ---
Provider Note Provider Note: Palliative care follow up visit 12:40- 1:05PM Brief palliative care follow up visit with this gentle 86 year old man who is hospitalized for weight loss and weakness. He is eating his lunch while I visited. He was having difficulty managing the food on his plate. He asked for help to cut his very soft baked fish. He was eating with relish and said the food tasted great. I asked him about his meals at home. He said he fixed most of his own meals, usually peanut butter and jelly sandwiches. He said he also likes the roasted chickens from [employer]. He tells me he goes to get his own food, which I cannot imagine. He says his son brings him food too. As noted yesterday, had no difficulty swallowing his food and no choking on liquids. He was able to talk and eat. He looks better already today and is smiling more. He agrees that he needs help at home. I think at present he would qualify for hospice, however, once he starts eating better and has some assistance, he most likely will improve quickly. Patient again denies pain and said he slept very well last night. He says his new medication is helping. I feel sure that it is, but I think having meals prepared and feeling secure with help available may also contribute to his improvement. He does not seem depressed when he talks about his and says he is glad she is getting good care. Objectively, Mr. Schwartz shows no respiratory distress, breathing easy and unlabored. Pulse is regular at present and he denies chest pain. Facial symmetry is normal, swallowing without distress and speech is somewhat slurred but easily understood. SCHILLING without noted weakness. No edema lower extremities. Mood is pleasant and relaxed. Oriented X3. Will be happy to follow and recommend hospice at home until patient improves. Since he denies pain and has no other symptoms, further exploration for pathology as a source of the weight loss may be better left for a few weeks to see if he continues to eat and perhaps gains weight on the Remeron. Thank you for the opportunity to participate with the care of this gentleman. With assistance for meal preparation and monitoring, I feel he will improve.
[2017-04-24] MEDS: GLIMEPIRIDE 1 MG TABLET PO SCH (07:47)
[2017-04-24] MEDS: INSULIN LISPRO 100 UNIT/ML 3 ML VIAL SUBCUT SCH ×4 (07:49→22:00)
[2017-04-24] MEDS: METOPROLOL TARTRATE 25 MG TABLET PO SCH ×2 (10:03→21:58)
[2017-04-24] MEDS: ASPIRIN 325 MG TABLET PO SCH (10:03)
[2017-04-24] MEDS: LACTOBACILLUS ACIDOPHILUS 250 MG TAB PO SCH ×2 (10:03→17:34)
[2017-04-24] MEDS: LISINOPRIL 10 MG TABLET PO SCH (10:03)
[2017-04-24] MEDS: HEPARIN SOD (PORCINE) 5,000 UNIT/ML 1 ML SYRINGE SUBCUT SCH ×2 (10:04→21:58)
--- NOTE | 2017-04-24 10:19 | PROGRESS NOTE E ---
Progress Note NAME: JULISA TIAN : 1930 AGE: 86Y DATE: 04/24/2017 ROOM: 302 SUBJECTIVE: The patient is lying in bed. He is a little sleepy this morning. The patient states that he does not always sleep that well at night here because of being in the hospital. Overall, the patient admits that his appetite has continued to improve. The patient denies any nausea, vomiting, diarrhea. No shortness of breath, chest pain, fever or chills. The patient has been afebrile. His blood pressure has been in good range. No further replication of AFib and the patient does not voice any other concerns at this time. REVIEW OF SYSTEMS: Rest of review of systems negative. MEDICATIONS: Medications have been reviewed. OBJECTIVE: GENERAL: The patient is an 86-year-old male who is awake, and alert and oriented to person, place, time, and situation. He is verbal conversational, just a little delayed, very hard of hearing, does not appear to be in any acute distress. VITAL SIGNS ARE FOLLOWS: Temperature is 97.4, pulse 87, respirations 18, blood pressure is 113/54, oxygen saturation is 100% on room air. SKIN: Warm and dry. No rash. Not diaphoretic. HEENT: His pupils are reactive. Conjunctivae are pink. No evidence of JVP. CARDIOVASCULAR: Heart is regular. There is no murmur or rub. CHEST: Clear, symmetrical, unlabored. ABDOMEN: Soft. Last bowel movement yesterday. EXTREMITIES: No clubbing, cyanosis, edema. PSYCHIATRIC: Very pleasant affect, appropriate mood. DIAGNOSTICS: Lab values are as follows: Hematology obtained on 04/21/2017: WBC 12.4, hemoglobin 13.9, hematocrit 42.9, platelet count 136,000. IMPRESSION AND PLAN: 1. ANOREX, NAUSEA, VOMITING, DIARRHEA. Overall this appears to have improved significantly. We will continue Remeron at night, as well as Megace and we will follow. 2. [id number] STAGE 3 KIDNEY DISEASE, MOST LIKELY DUE THE PATIENT BEING VOLUME DOWN. His creatinine is now back to baseline, have discontinued IV fluids. 3. DIABETES MELLITUS, TYPE 2. We will continue Amaryl and sliding scale coverage. 4. HYPERTENSION. Blood pressures have been in a good range. Will continue current medication. 5. PAROXYSMAL ATRIAL FIBRILLATION. The patient spontaneously converted back to sinus. According to the patient, he feels his heart races intermittently while he is at home. Patient and family want conservative management and the patient had tolerated a beta nba. Given his advanced age and history of falls, we will just put the patient on aspirin for now. 6. DVT PROPHYLAXIS. Will continue subcutaneous heparin. DISPOSITION: The patient is a DO NOT RESUSCITATE/DO NOT INTUBATE. Pending patient's symptomatology and diagnostic findings, the patient can go to rehab as soon as a bed is available. TIME SPENT: On this followup including assessment, plan, physical examination and patient education is 20 minutes. DICTATING PHYSICIAN: TRINIDAD DIAZ NP [id number] PHY#: [id number] ID: [id number] JOB#: [id number] ACCT: [id number] cc: >
[2017-04-24] MEDS: MEGESTROL ACETATE SUSP 400 MG/10 ML UDCUP PO SCH (12:08)
[2017-04-24] MEDS: TAMSULOSIN HCL 0.4 MG CAP.SR.24H PO SCH (17:35)
[2017-04-24] MEDS: MIRTAZAPINE 15 MG TABLET PO SCH (21:58)
[2017-04-25 05:26] LABS: ANION GAP 7 (5-19); BLOOD UREA NITROGEN 49 mg/dL (7-20); CALCIUM 8.1 mg/dL (8.4-10.2); CARBON DIOXIDE 20 mmol/L (22-30); CHLORIDE 111 mmol/L (98-107); GLUCOSE 110 mg/dL (75-110); POTASSIUM 3.5 mmol/L (3.6-5.0); SODIUM 138.2 mmol/L (137-145)
[2017-04-25 05:45] LABS: HEMATOCRIT 34.3 % (37.9-51.0); HEMOGLOBIN 11.4 g/dL (13.5-17.0); HGB HCT DIFFERENCE -0.1; MEAN CORPUSCULAR HEMOGLOBIN 32.2 pg (27.0-33.4); MEAN CORPUSCULAR HGB CONC 33.2 g/dL (32.0-36.0); MEAN CORPUSCULAR VOLUME 97 fl (80-97); RED BLOOD COUNT 3.54 10^6/uL (4.35-5.55); RED CELL DISTRIBUTION WIDTH 13.4 % (11.5-14.0); WHITE BLOOD COUNT 12.1 10^3/uL (4.0-10.5)
[2017-04-25] MEDS: INSULIN LISPRO 100 UNIT/ML 3 ML VIAL SUBCUT SCH ×4 (07:37→21:54)
[2017-04-25] MEDS: GLIMEPIRIDE 1 MG TABLET PO SCH (07:37)
[2017-04-25] MEDS: LACTOBACILLUS ACIDOPHILUS 250 MG TAB PO SCH ×2 (11:27→17:51)
[2017-04-25] MEDS: LISINOPRIL 10 MG TABLET PO SCH (11:28)
[2017-04-25] MEDS: ASPIRIN 325 MG TABLET PO SCH (11:28)
[2017-04-25] MEDS: METOPROLOL TARTRATE 25 MG TABLET PO SCH ×2 (11:28→21:52)
[2017-04-25] MEDS: MEGESTROL ACETATE SUSP 400 MG/10 ML UDCUP PO SCH (11:29)
[2017-04-25] MEDS: HEPARIN SOD (PORCINE) 5,000 UNIT/ML 1 ML SYRINGE SUBCUT SCH (11:29)
[2017-04-25] MEDS ORDERED: POTASSIUM CHLORIDE 10 MEQ TABLET.SA PO ONE (12:05)
--- NOTE | 2017-04-25 13:59 | PROGRESS NOTE E ---
Progress Note NAME: JULISA TIAN : 1930 AGE: 86Y DATE: 04/25/2017 ROOM: 302 SUBJECTIVE: The patient is currently out of bed to the bedside chair. He states that he feels pretty good today. He denies any nausea, vomiting, diarrhea. No shortness of breath, dizziness, chest pain. States that his appetite overall improving and the patient does not voice any other concerns at the time. REVIEW OF SYSTEMS: The rest of the review of systems is negative. MEDICATIONS: Medications have been reviewed. OBJECTIVE: GENERAL: The patient is an 86-year-old male who is awake, alert and oriented to person, place, time, situation. He is verbal, conversational. Does not appear to be in any acute distress. VITAL SIGNS: Temperature is 98.2, pulse 72, respirations 16, blood pressure is 106/45. Oxygen saturation 99% on room air. SKIN: Warm and dry, no rash. Not diaphoretic. HEENT: Pupils equal, round, reactive to light and accommodation. Conjunctivae pink. No JVD. CARDIOVASCULAR: Heart is regular. There is no murmur or rub. CHEST: Clear, symmetrical, unlabored. ABDOMEN: Soft, nontender, nondistended. Bowel sounds are present. BACK: No CVA tenderness or sacral edema. EXTREMITIES: No clubbing, cyanosis, edema. PSYCHIATRIC: Appropriate affect, pleasant mood. DIAGNOSTIC LABORATORY VALUES: Hematology obtained on 04/25/2017: WBCs are 12.1, hemoglobin is 11.4, hematocrit is 34.3, platelet count is 93,000. Chemistry obtained on 04/25/2017: Sodium is 138, potassium 2.5, chloride is 111, carbon dioxide 20, BUN 49, creatinine is 1.5, glucose 110, calcium is 8.1. IMPRESSION AND PLAN: 1. HYPOKALEMIA. Will supplement this. 2. ANOREXIA, NAUSEA, VOMITING, DIARRHEA. Overall appears much improved and actually resolved. The patient's symptoms have improved with Remeron at night, as well as Megace. Will follow. 3. [id number] STAGE 3 KIDNEY DISEASE. Most likely due to the patient's prerenal azotemia. His creatinine is back to baseline. 4. DIABETES MELLITUS TYPE 2. Will continue Amaryl. Blood sugar is relatively stable. 5. HYPERTENSION. Blood pressure is in a good range. Will continue current medication. 6. PAROXYSMAL ATRIAL FIBRILLATION. The patient spontaneously converted back to sinus rhythm. Feel the patient has been doing this for a while as he states that his heart races intermittently at home. Does want to proceed with conservative management. The patient does appear to have tolerated a beta nba and he is on full-dose aspirin. Given the patient's advanced age and recent history of falls, will defer chronic anticoagulation. 7. DVT PROPHYLAXIS. The patient is ambulatory. Will encourage this, as well as MARCEL summers. We discontinue subcutaneous heparin given the patient's drifting platelet count. DISPOSITION: The patient is a DO NOT RESUSCITATE/DO NOT INTUBATE. Given the patient's symptomatology and diagnostic findings he can go to rehab in the morning when a bed is available. Time spent with followup including assessment, plan, physical examination, patient education is 10 minutes. DICTATING PHYSICIAN: TRINIDAD DIAZ NP [id number] PHY#: [id number] ID: [id number] JOB#: [id number] ACCT: [id number] cc: >
[2017-04-25] MEDS: TAMSULOSIN HCL 0.4 MG CAP.SR.24H PO SCH (17:50)
[2017-04-25] MEDS: MIRTAZAPINE 15 MG TABLET PO SCH (21:51)
[2017-04-26] MEDS ORDERED: MAG HYDROX/AL HYDROX/SIMETH SUSP 30 ML UDCUP PO ONE (04:15)
[2017-04-26] MEDS: GLIMEPIRIDE 1 MG TABLET PO SCH (08:16)
[2017-04-26] MEDS: INSULIN LISPRO 100 UNIT/ML 3 ML VIAL SUBCUT SCH ×2 (08:18→11:47)
[2017-04-26] MEDS: ASPIRIN 325 MG TABLET PO SCH (09:33)
[2017-04-26] MEDS: METOPROLOL TARTRATE 25 MG TABLET PO SCH (09:33)
[2017-04-26] MEDS: LACTOBACILLUS ACIDOPHILUS 250 MG TAB PO SCH (09:34)
[2017-04-26] MEDS: LISINOPRIL 10 MG TABLET PO SCH (09:34)
--- NOTE | 2017-04-26 11:36 | TRANSFER SUMMARY E ---
Transfer Summary NAME: JULISA TIAN : 1930 AGE: 86Y ADMITTED: 04/21/2017 TRANSFERRED: 04/26/2017 CODE STATUS: DO NOT RESUSCITATE/DO NOT INTUBATE WITH A PORTABLE DNR ON THE CHART. PRIMARY CARE PROVIDER: Di Livingston PA-C DISCHARGE DIAGNOSES: 1. Daxsj-ly-dxzfknl stage III kidney disease. The patient's creatinine is now back to baseline. 2. Paroxysmal atrial fibrillation, currently in sinus rhythm. 3. Hypertension. 4. Anorexia, which has improved. 5. Nausea, vomiting, and diarrhea, resolved. 6. Hypokalemia, resolved with supplementation. 7. Diabetes mellitus, type 2, controlled. DISCHARGE MEDICATIONS: 1. Aspirin 325 mg p.o. daily. 2. Remeron 7.5 mg p.o. q hour of sleep. 3. Lopressor 25 mg p.o. q.12 h. 4. Lisinopril 20 mg p.o. daily. 5. Amaryl 1 mg p.o. daily. 6. Flomax 0.4 mg p.o. daily. DIET: As tolerated. ACTIVITY: Per rehab center. HISTORY OF PRESENT ILLNESS: The patient is an 86-year-old male with a past medical history of hypertension and chronic kidney disease. The patient presented to the emergency department with a chief complaint of vomiting and weakness. The patient was noted to be mildly hypotensive upon presentation, but responded to a bolus of fluids. Over the past couple of months prior to presentation, the patient has had intermittent nausea, vomiting, diarrhea, and a complete disinterest in food. The patient denied any fevers or chills. Denied any chest pain or abdominal discomfort. The patient did not have any symptoms after presentation. The patient has had generalized weakness and has had a significant decline in the past couple of months. The patient who had been ambulatory had required a cane and now is requiring a walker, with an unintentional weight loss of 28 pounds since February. The patient has also had some dizziness at times and has actually fallen twice in the 2 weeks prior to presentation. His last episode of fall was over a week prior to presenting. The patient's creatinine, which baseline is around 1.5, was noted to be 2.9, and the patient was referred to the hospitalist for admission and management. HOSPITAL COURSE: Patient was admitted to [facility]. The patient was gently hydrated and the patient's creatinine returned to baseline. The patient still was having issues with disinterest in food, although the patient's other GI symptoms of nausea, vomiting, and diarrhea completely resolved. Stool studies were unremarkable and after much discussion with the patient and family, family has elected to proceed with appetite stimulant, such as Remeron and Megace. The patient has responded nicely to this and the patient has consumed each one of his trays since this. The patient has actually been doing quite well and is himself happy with his response. The patient was seen and evaluated by Palliative Care during this admission due to an overall appearance of [id number] due to his being placed in a facility and patient and family have been receptive to this. During the patient's stay, he did have a brief episode of atrial fibrillation in which the patient spontaneously converted. Listening to the patient's history, it appears that most likely he has done this at home in the past, and therefore, does wish for conservative management. The patient was started on low dose beta-nba, as well as aspirin therapy. With the patient's recent history of falls, his age, and minimal risk factors, both the patient and the family declined chronic anticoagulation. The patient was especially resistant to this, but felt an aspirin was sufficient. DIAGNOSTICS: Lab values are as follows: Hematology obtained on 04/25/2017: WBCs are 12.1, hemoglobin 11.4, hematocrit 34.3, and platelet count 93,000. Coagulation done on 04/22/2017: PT is 13.6, INR is 0.97, and D-dimer 1.68. Venous blood gas obtained on 04/20/2017: pH of 7.43, pCO2 of 33.3, bicarb is 21.6. Chemistry obtained on 04/25/2017: Sodium 138, potassium 3.6, chloride 111, carbon dioxide 20, BUN 49, creatinine 1.5, glucose 110, calcium 8.1, magnesium 1.8, bilirubin 1.2, AST 29, ALT 43, alkaline phosphatase 76, CK 76, total protein 6.8, albumin 3.9. Urinalysis obtained on 04/20/2017: Color yellow, appearance slightly cloudy, pH is 5.0, specific gravity is 1.019, protein 30, glucose negative, ketones trace, occult blood moderate, nitrate negative, bilirubin negative, urobilinogen negative, leukocyte esterase negative, wbc's 1, rbc's 6, bacteria trace, epithelial squamous cells 0, ascorbic acid is negative. Stool studies obtained on 04/20/2017: Stool for occult blood is negative. Stool for white blood cells is negative. MICROBIOLOGY: Stool culture obtained on 04/20/2017 is negative. Urine culture obtained on 04/20/2017 reveals no significant growth. Blood cultures obtained on 04/20/[address] of the abdomen and pelvis obtained on 04/20/2017 reveals no evidence of bowel obstruction, enlarged prostate, occasional sigmoid diverticula, but no acute inflammatory changes. Head CT obtained on 04/20/2017 reveals mild chronic changes of atrophy and microvascular ischemia. No acute process. Chest x-ray obtained on 04/20/2017 reveals chronic changes of the lung without a cardiopulmonary process. Esophagus x-ray obtained on 04/21/2017 reveals a normal single contrast swallow. Lung V/Q scan obtained on 04/22/2017 reveals an intermittent probability of PE. Chest and abdominal CTA obtained on 04/23/[address] evidence for pulmonary emboli. EKG obtained on 04/20/2017 reveals sinus rhythm. EKG obtained on 04/22/2017 reveals atrial fibrillation. PHYSICAL EXAMINATION: GENERAL: On examination, the patient is a well-developed, well-nourished, 86-year-old male who is awake, alert, and oriented to person, place, time, and situation. He is verbal, conversational, and ambulatory. He does not appear to be in any acute distress. VITAL SIGNS ARE FOLLOWS: Pulse 95, respirations 16, blood pressure 121/52, oxygen saturation is 99% on room air. SKIN: Warm and dry, no rash, not diaphoretic. HEENT: Pupils equal, round and reactive to light and accommodation. Conjunctivae are pink. No JVP. HEART: Regular with no murmur or rub. CHEST: Clear, symmetrical, unlabored. ABDOMEN: Soft, nontender, and nondistended. BACK: No CVA tenderness or sacral edema. EXTREMITIES: No clubbing, cyanosis, or edema. DISCHARGE PLANNING: The patient will be transferred to [place] for rehab. Time spent on this discharge, including assessment, plan, physical examination, patient education, family meeting, and resource alignment is 35 minutes. DICTATING PHYSICIAN: TRINIDAD DIAZ NP [id number] PHY#: [id number] ID: [id number] JOB#: [id number] ACCT: [id number] cc:RTINIDAD DIAZ NP >
[2017-04-26] MEDS: MEGESTROL ACETATE SUSP 400 MG/10 ML UDCUP PO SCH (11:40)
[2017-04-26 13:22] VITALS: BP 130/56
== END 2017-04-26 14:40 | DRG 641 ==
LOC: ER 16:47 → UNDOADMIN 04-21 00:35 → EH 04-21 00:35 → INTOOBSV 04-21 02:40 → 3N 04-21 05:53 → OBSVTOIN 04-21 18:00
PROVIDERS: ADMIT Family Medicine; ATTEND Family Medicine
DX: E87.0 Hyperosmolality and hypernatremia (principal); Z68.1 Body mass index [BMI] 19.9 or less, adult; R62.7 Adult failure to thrive; E86.0 Dehydration; E88.09 Other disorders of plasma-protein metabolism, not elsewhere classified; R63.4 Abnormal weight loss; R63.0 Anorexia; E87.6 Hypokalemia; I48.0 Paroxysmal atrial fibrillation; Z66 Do not resuscitate; R13.10 Dysphagia, unspecified; I12.9 Hypertensive chronic kidney disease with stage 1 through stage 4 chronic kidney disease, or unspecified chronic kidney disease; E11.22 Type 2 diabetes mellitus with diabetic chronic kidney disease; N18.3 Chronic kidney disease, stage 3 (moderate); R19.7 Diarrhea, unspecified; M17.0 Bilateral primary osteoarthritis of knee; F32.9 Major depressive disorder, single episode, unspecified; Z79.82 Long term (current) use of aspirin; Z79.899 Other long term (current) drug therapy; Z90.49 Acquired absence of other specified parts of digestive tract
CPT/HCPCS: 36415; 70450; 71020; 71275; 74176; 74220; 78582; 80048; 80053; 81001; 82040; 82272; 82550; 82553; 82803; 82962; 83605; 83735; 84443; 84484; 85025; 85027; 85379; 85610; 87040; 87045; 87086; 87205; 87493; 89055; 93005; 93010; 96360; 96361; 99291; 99292; A9540; A9567; G0378; G8978-GP; G8979-GP; G8996-GN; G8997-GN; G8998-GN; J1644; J1815; J3490; J7030; J7120; Q9969

== ENCOUNTER → 2017-06-11 | Outpatient (CLI) | payer MEDICARE, BC ==
[2017-06-11 11:13] LABS: HEMATOCRIT 31.9 % (37.9-51.0); HGB HCT DIFFERENCE 1.1; MEAN CORPUSCULAR HEMOGLOBIN 34.5 pg (27.0-33.4); MEAN CORPUSCULAR HGB CONC 34.6 g/dL (32.0-36.0); MEAN CORPUSCULAR VOLUME 100 fl (80-97); RED CELL DISTRIBUTION WIDTH 15.1 % (11.5-14.0)
[2017-06-11 11:24] LABS: APPEARANCE,URINE CLEAR; BILIRUBIN,URINE NEGATIVE (NEGATIVE); GLUCOSE, URINE NEGATIVE (NEGATIVE); KETONES,URINE NEGATIVE (NEGATIVE); LEUKOCYTE ESTERASE,URINE NEGATIVE (NEGATIVE); NITRITE,URINE NEGATIVE (NEGATIVE); PROTEIN,URINE NEGATIVE (NEGATIVE); URINE SPECIFIC GRAVITY 1.017; UROBILINOGEN,URINE NEGATIVE mg/dL (<2.0)
[2017-06-11 11:43] LABS: ANION GAP 13 (5-19); BLOOD UREA NITROGEN 48 mg/dL (7-20); CALCIUM 9.2 mg/dL (8.4-10.2); CARBON DIOXIDE 22 mmol/L (22-30); CHLORIDE 108 mmol/L (98-107); CREATININE RESULT 1.43 mg/dL (0.52-1.25); GLUCOSE 91 mg/dL (75-110); POTASSIUM 4.7 mmol/L (3.6-5.0); SODIUM 142.5 mmol/L (137-145)
== END ==
LOC: OD 09:59
PROVIDERS: ATTEND Physician Assistant Medical
DX: E11.22 Type 2 diabetes mellitus with diabetic chronic kidney disease (principal); I12.9 Hypertensive chronic kidney disease with stage 1 through stage 4 chronic kidney disease, or unspecified chronic kidney disease; N18.3 Chronic kidney disease, stage 3 (moderate)
CPT/HCPCS: 36415; 80048; 81001; 85027

== ENCOUNTER → 2017-12-10 | Outpatient (CLI) | payer MEDICARE, BC ==
[2017-12-10 11:24] LABS: HEMATOCRIT 40.5 % (37.9-51.0); HEMOGLOBIN 13.9 g/dL (13.5-17.0); MEAN CORPUSCULAR HEMOGLOBIN 32.6 pg (27.0-33.4); MEAN CORPUSCULAR HGB CONC 34.3 g/dL (32.0-36.0); MEAN CORPUSCULAR VOLUME 95 fl (80-97); PLATELET COUNT 177 10^3/uL (150-450); RED BLOOD COUNT 4.26 10^6/uL (4.35-5.55); WHITE BLOOD COUNT 8.7 10^3/uL (4.0-10.5)
[2017-12-10 11:45] LABS: ANION GAP 12 (5-19); BLOOD UREA NITROGEN 33 mg/dL (7-20); CALCIUM 9.5 mg/dL (8.4-10.2); CARBON DIOXIDE 25 mmol/L (22-30); CHLORIDE 107 mmol/L (98-107); GLUCOSE 141 mg/dL (75-110); POTASSIUM 4.5 mmol/L (3.6-5.0); SODIUM 143.9 mmol/L (137-145)
== END ==
LOC: OD 10:22
PROVIDERS: ATTEND Internal Medicine Nephrology
DX: E11.22 Type 2 diabetes mellitus with diabetic chronic kidney disease (principal); I12.9 Hypertensive chronic kidney disease with stage 1 through stage 4 chronic kidney disease, or unspecified chronic kidney disease; N18.3 Chronic kidney disease, stage 3 (moderate)
CPT/HCPCS: 36415; 80048; 85027